=== PATIENT | female | born 1980 | race Two or more races ===

== ENCOUNTER 2017-05-21 20:23 | Inpatient (IN) | payer MEDICAID ==
[~2017-05-21] VITALS: Ht 152.4 cm; Wt 85.7 kg
[2017-05-21] MEDS ORDERED: OXYTOCIN 20 UNITS in LACTATED RINGERS 1,000 ML IV SCH (22:40)
[2017-05-21] MEDS ORDERED: NALBUPHINE 10 MG/ML AMP IVP PRN (22:40)
[2017-05-21] MEDS ORDERED: PROMETHAZINE 25 MG/ML VIAL IVP PRN (22:40)
[2017-05-21] MEDS ORDERED: METHYLERGONOVINE 0.2 MG/ML AMP IM PRN (22:40)
[2017-05-21] MEDS ORDERED: CARBOPROST 250 MCG/ML AMP IM PRN (22:40)
[2017-05-21] MEDS ORDERED: OXYTOCIN 10 UNITS/ML VIAL IM ONE (22:40)
[2017-05-21 23:00] VITALS: BP 129/75
[2017-05-21] MEDS ORDERED: AMPICILLIN 2,000 MG in NACL 0.9% 100 ML IV SCH (23:00)
[2017-05-21] MEDS ORDERED: AMPICILLIN 2,000 MG VIAL ONE (23:20)
[2017-05-21] MEDS: LACTATED RINGERS 1,000 ML IV SCH (23:26)
[2017-05-21 23:53] LABS: BASOPHILS # (AUTO) 0.1 K/uL (0.00-0.22); BASOPHILS % (AUTO) 1.6 % (0.0-2.0); EOSINOPHILS # (AUTO) 0.1 K/uL (0-0.4); EOSINOPHILS % (AUTO) 0.8 % (0.0-4.0); HEMATOCRIT 32.6 % (36-48); HEMOGLOBIN 10.6 g/dL (12.0-16.0); LYMPHOCYTES # (AUTO) 2.8 K/uL (2.5-16.5); MEAN CORPUSCULAR HEMOGLOBIN 27 pg (27-31); MEAN CORPUSCULAR HGB CONC 32 g/dL (33-37); MEAN CORPUSCULAR VOLUME 83 fL (80-94); MONOCYTES # (AUTO) 0.4 K/uL (0.8-1.0); MONOCYTES % (AUTO) 4.3 % (1.7-9.3); NEUTROPHILS # (AUTO) 4.9 K/uL (1.8-7.7); NEUTROPHILS % (AUTO) 59.3 % (42.2-75.2); PLATELET COUNT (AUTO) 253 K/uL (140-450); RED BLOOD CELL COUNT(AUTO) 3.95 MIL/uL (4.20-5.40); RED CELL DISTRIBUTION WIDTH 12.6 % (11.6-13.7); WHITE BLOOD COUNT (AUTO) 8.3 K/uL (4.8-10.8)
[2017-05-22 00:03] LABS: ANION GAP 15.8 (8-16); CARBON DIOXIDE 21.9 mmol/L (21-32); CREATININE 0.7 mg/dL (0.6-1.3); POTASSIUM 3.7 mmol/L (3.5-5.1)
[2017-05-22 00:09] LABS: ALBUMIN 2.3 g/dL (3.4-5.0); TOTAL BILIRUBIN 0.2 mg/dL (0.0-1.0)
[2017-05-22] MEDS ORDERED: BUPIVACAINE 0.125%/NS PREMIX 250 ML ONE (00:24)
[2017-05-22] MEDS: LACTATED RINGERS 1,000 ML IV SCH (00:56)
[2017-05-22 01:35] LABS: APPEARANCE,URINE CLEAR (CLEAR); BILIRUBIN,URINE NEGATIVE (NEGATIVE); BLOOD, URINE NEGATIVE (NEGATIVE); COLOR,URINE YELLOW (YELLOW); LEUKOCYTE ESTERASE ,URINE NEGATIVE (NEGATIVE); NITRITE, URINE NEGATIVE (NEGATIVE); PH,URINE 5.5 (5.0-9.0); UGLUCOSE NEGATIVE (NEGATIVE)
[2017-05-22 01:42] LABS: BARBITURATE, URINE NEG. ng/ml (NEG <=200); BENZODIAZEPINE, URINE NEG. ng/mL (NEG <=200); CANNABINOID, URINE NEG. ng/mL (NEG <=50); COCAINE, URINE NEG. ng/mL (NEG <=300); OPIATE, URINE NEG. ng/mL (NEG <=2000); PHENCYCLIDINE SCREEN,URINE NEG. ng/mL (NEG <=25)
[2017-05-22] MEDS ORDERED: INFLUENZA VIRUS VACCINE QUAD 0.5 ML SYR IMVAC SCH (02:40)
[2017-05-22 02:49] LABS: RBC,URINE 0-5 (RARE) /HPF (0-5); URINE AMORPHOUS URATE 4+ /HPF (None Seen); WBC,URINE 0-5 (RARE) /HPF (0-5)
[2017-05-22] MEDS ORDERED: AMPICILLIN 1,000 MG in NACL 0.9% 50 ML IV SCH (03:00)
[2017-05-22] MEDS ORDERED: AMPICILLIN 1,000 MG VIAL ONE (03:30)
[2017-05-22] MEDS ORDERED: OXYTOCIN 20 UNITS/LR PREMIX 1,000 ML IV ONE (04:00)
[2017-05-22] MEDS ORDERED: OXYTOCIN 10 UNITS/ML VIAL ONE (08:47)
[2017-05-22] MEDS ORDERED: BENZOCAINE/MENTHOL 20%-0.5% 60 GM CAN TP PRN (11:20)
[2017-05-22] MEDS ORDERED: oxyCODONE/APAP 5/325 MG 1 TAB TAB PO PRN (11:20)
[2017-05-22] MEDS ORDERED: MEASLES, MUMPS, AND RUBELLA 1 VIAL SQVAC PRN (11:20)
[2017-05-22] MEDS ORDERED: HYDROcodone/APAP 5/325 MG 1 TAB TAB PO PRN (11:20)
[2017-05-22] MEDS ORDERED: TEMAZEPAM 15 MG CAP PO PRN (11:20)
[2017-05-22] MEDS ORDERED: IBUPROFEN 800 MG TAB PO PRN (11:20)
--- NOTE | 2017-05-22 15:32 | NUR ---
PATIENT HAS BEEN SCREENED AND CATEGORIZED LOW NUTRITION RISK. PATIENT WILL BE SEEN WITHIN 7 DAYS OF ADMISSION. 05/28/[address]
[2017-05-22] MEDS ORDERED: DOCUSATE SOD/SENNA 50/8.6 MG 1 TAB PO SCH (21:00)
[2017-05-23 06:18] LABS: HEMATOCRIT 31.2 % (36-48); HEMOGLOBIN 10.1 g/dL (12.0-16.0)
[2017-05-23 09:07] LABS: HEPATITIS B SURFACE ANTIBODY Non Reactive (.)
[2017-05-23] MEDS ORDERED: IBUP-1842 PO (10:34)
== END 2017-05-23 13:45 | disposition home or self-care (01) | DRG 560 ==
LOC: MLD 20:23 → OBSVTOIN 22:46 → MFCC 05-22 12:30
PROVIDERS: ADMIT Obstetrics & Gynecology; ATTEND Obstetrics & Gynecology
PROC: 10E0XZZ Delivery of Products of Conception, External Approach (ICD-10-PCS; principal; 2017-05-22)
PROC: 10907ZC Drainage of Amniotic Fluid, Therapeutic from Products of Conception, Via Natural or Artificial Opening (ICD-10-PCS; 2017-05-22)
PROC: 3E0R3BZ Introduction of Anesthetic Agent into Spinal Canal, Percutaneous Approach (ICD-10-PCS; 2017-05-22)
PROC: 00HU33Z Insertion of Infusion Device into Spinal Canal, Percutaneous Approach (ICD-10-PCS; 2017-05-22)
DX: O80 Encounter for full-term uncomplicated delivery (principal); Z37.0 Single live birth; Z3A.40 40 weeks gestation of pregnancy; Z28.21 Immunization not carried out because of patient refusal
CPT/HCPCS: G0378 ×2; 36415; 51702; 59409; 76805; 80053; 80305; 81001; 85018; 85025; 86592; 86706; 86762; 86886; 86900; 86901; 87653-90; J0290; J2590; J3490; J7120; Q0092